=== PATIENT | male | born 1945 | race Caucasian/White ===

== ENCOUNTER 2019-03-24 07:00 | Outpatient (CLI) | payer MEDICARE, OTHER, SELFPAY ==
[2019-03-24 13:10] LABS: Hemoglobin A1C 5.5 % (4.5-6.2)
[2019-03-24 13:39] LABS: Anion Gap 9.5 mmol/L (3-11); BUN 11 mg/dL (7-18); CO2 26.5 mmol/L (21.0-32.0); CREATININE 0.78 mg/dL (0.70-1.30); Calcium 9.2 mg/dL (8.5-10.1); Calculated LDL 64 mg/dL; Chloride 104 mmol/L (98-107); Cholesterol 135 mg/dL (50-200); Glucose 87 mg/dL (70-100); HDL Cholesterol 58 mg/dL (40-60); Potassium 4.2 mmol/L (3.5-5.1); Sodium 140 mmol/L (136-145); Triglyceride 66 mg/dL (30-150)
[2019-03-27 09:33] LABS: PSA, Screening 3.7 ng/ml (0-6.5)
== END 2019-03-24 07:20 ==
PROVIDERS: PCP Emergency Medicine; Visit Provider Emergency Medicine
DX: E11.9 Type 2 diabetes mellitus without complications (principal); I48.91 Unspecified atrial fibrillation; Z12.5 Encounter for screening for malignant neoplasm of prostate
CPT/HCPCS: 36415; 80048; 80061; 84153; 83036

== ENCOUNTER → 2020-01-30 14:00 | Outpatient (BNVA) | payer MEDICARE, OTHER, SELFPAY | PROVIDERS: PCP Emergency Medicine; Referring Provider Emergency Medicine; Visit Provider Urology | DX: N50.89 Other specified disorders of the male genital organs (principal); Z79.01 Long term (current) use of anticoagulants | CPT/HCPCS: 99203 ==

== ENCOUNTER 2020-11-13 15:09 | Outpatient (REF) | payer MEDICARE, OTHER, SELFPAY ==
[2020-11-13 19:29] LABS: BUN 15 mg/dL (7-18); CREATININE 0.9 mg/dL (0.70-1.30); Calculated LDL 57 mg/dL (<100); Chloride 107 mmol/L (98-107); Cholesterol 116 mg/dL (<200); Glucose 86 mg/dL (74-106); HDL Cholesterol 45 mg/dL (40-60); Potassium 4.4 mmol/L (3.5-5.1); Sodium 143 mmol/L (136-145); Triglyceride 71 mg/dL (<150)
[2020-11-13 19:38] LABS: Uric Acid 6.9 mg/dL (3.5-7.2)
[2020-11-14 18:07] LABS: PSA, Diagnostic 4.7 ng/mL (0.0-6.5)
== END 2020-11-13 15:10 | disposition home or self-care (01) ==
LOC: LBN 15:09
PROVIDERS: PCP Emergency Medicine; Visit Provider Emergency Medicine
DX: I10 Essential (primary) hypertension (principal); M10.9 Gout, unspecified; E78.5 Hyperlipidemia, unspecified; N40.0 Benign prostatic hyperplasia without lower urinary tract symptoms; Z95.1 Presence of aortocoronary bypass graft; I25.10 Atherosclerotic heart disease of native coronary artery without angina pectoris
CPT/HCPCS: 80048; 80061; 84153; 84550

== ENCOUNTER 2021-02-20 12:13 | Outpatient (CLI) | payer MEDICARE, OTHER, SELFPAY ==
[2021-02-20 16:59] LABS: Bilirubin Negative (Negative); Blood Negative (Negative); Clarity Clear (Clear); Glucose Negative (Negative); Ketones Negative (Negative); Leukocyte Esterase Negative (Negative); Nitrite Negative (Negative); Specific Gravity 1.025 (1.005-1.025); Urobilinogen 0.2 EU/dL (Up TO 0.2); pH 5.5 (5-8)
[2021-02-20 17:00] LABS: Abs Immature Grans 0.06 10^3/uL (0.0-0.06); Absolute Basophil Count 0.04 10^3/uL (0.0-0.2); Absolute Eosinophil Count 0.18 10^3/uL (0.0-0.7); Absolute Lymphocyte Count 2.63 10^3/uL (1.2-3.4); Absolute Monocyte Count 0.74 10^3/uL (0.1-0.8); Absolute Neutrophil Count 5.94 10^3/uL (1.2-6.7); Basophils % 0.4; Eosinophils % 1.9; HGB 15.3 g/dL (13.5-17.5); Immature Grans % 0.6; Lymphocytes % 27.4; MCH 29.8 pg (27.0-33.0); MCHC 32.6 % (32.0-36.0); MCV 91.4 fL (80-95); MPV 10.9 fL (8.0-11.0); Monocytes % 7.7; Nucleated RBC 0 %; Platelet Count 204 10^3/uL (130-400); RBC 5.14 10^6/uL (4.36-5.78); RDW 12.9 % (11.8-14.1); RDW-SD 43.2 fL; WBC 9.59 10^3/uL (4.4-10.8)
[2021-02-20 17:19] LABS: ALT 26 U/L (16-63); AST 17 U/L (15-37); Alkaline Phosphatase 92 U/L (46-116); Anion Gap 10.1 mmol/L (3-11); BUN 15 mg/dL (7-18); Bilirubin, Total 0.8 mg/dL (0.2-1.0); C-Reactive Protein 0.29 mg/dL (0.0-0.3); CO2 24.9 mmol/L (21.0-32.0); CREATININE 0.8 mg/dL (0.70-1.30); Calcium 9.3 mg/dL (8.5-10.1); Chloride 106 mmol/L (98-107); Glucose 95 mg/dL (74-106); Potassium 4.5 mmol/L (3.5-5.1); Sodium 141 mmol/L (136-145); Total Protein 7.8 g/dL (6.4-8.2)
== END 2021-02-20 12:14 | disposition home or self-care (01) ==
LOC: LBO 02-26 12:14
PROVIDERS: PCP Emergency Medicine; Visit Provider Emergency Medicine
DX: R19.8 Other specified symptoms and signs involving the digestive system and abdomen; R10.9 Unspecified abdominal pain; R30.0 Dysuria
CPT/HCPCS: 36415; 80053; 81003; 85025; 86140

== ENCOUNTER 2021-02-20 14:24 | Outpatient (CLI) | payer MEDICARE, OTHER, SELFPAY ==
--- NOTE | 2021-02-20 14:00 | DI.CT_ITS ---
Exam(s) CT RENAL COLIC WO EXAM: CT RENAL COLIC WO CLINICAL HISTORY: left flank pain, ? kidney stone,r10.9. TECHNIQUE: Imaging Protocol: Axial computed tomography images with coronal and sagittal reformatted images were created and reviewed CONTRAST MATERIAL: Intravenous: none Oral: None COMPARISON: No exams were available for comparison FINDINGS: VISUALIZED LUNG BASES: No nodules nor pleural effusions evident. ABDOMEN: There is no ascites. LIVER: There are no obvious focal hepatic lesions evident of this noninfused study. GALLBLADDER/BILIARY: There are multiple tiny layering gallstones within the gallbladder lumen. No ga llbladder wall edema. One of these calculi appears to be in the cystic duct. This measures approxim ately 2 millimeters. There are none in the nondilated CBD. PANCREAS: No evidence of pancreatic mass nor dilatation of the pancreatic duct. SPLEEN: Spleen is not enlarged. No obvious intrasplenic lesions. ADRENALS: There are no significant adrenal masses. KIDNEYS:There is a small 8 millimeter cyst in the posterior cortex of the left kidney. No other left kidney findings. No significant focal findings in the right kidney. No calculi nor hydronephrosis on either side. No hydroureter. Ureterovesical junctions cannot be assessed because of beam hardeni ng artifact from the bilateral hip prostheses. Also difficult to assess the urinary bladder for calc larry therein. However, the urinary bladder is not distended. There are no solid. ABDOMINAL AORTA: Heavily calcified but not enlarged. LYMPH NODES: There is no retroperitoneal nor paraaortic adenopathy. ABDOMINAL WALL: No evidence of significant anterior abdominal wall nor inguinal hernia. GI: There is no evidence of bowel obstruction, free air, nor abscess. PELVIS: LYMPH NODES: There is no intrapelvic nor inguinal adenopathy. GI: No evidence of appendicitis.Sigmoid diverticuli. No obvious acute diverticulitis. URINARY BLADDER: Difficult to assess because of beam hardening artifact from the bilateral hip prosth eses. REPRODUCTIVE: Upper normal size. Seminal vesicles unremarkable. OSSEOUS: Bilateral hip prostheses Multilevel chronic degenerative disc disease. Also prominent Schmorl's node invagination into the dozier perior endplate of L3. Mild degenerative anterolisthesis of L5 upon S1. Multilevel disc space narro wing. IMPRESSION: 1. Cholelithiasis. There is a myriad of tiny layering gallstones within the gallbladder lumen. Ther e is no gallbladder wall edema. However, 1 of these tiny calculi appears to be in the cystic duct. Cystic duct is not dilated. CBD is not dilated. Pancreatic duct is not dilated. No evidence of lovelace creatitis. 2. No renal calculi. No hydronephrosis. Although the ureters are not dilated, is difficult to visua lize the ureterovesical junctions and urinary bladder because of beam hardening artifact from the elver ateral hip prostheses. 3. Redundant sigmoid with diverticuli. No obvious acute diverticulitis. Other findings as above Discussed by phone with Dr. Horta RADIATION DOSE DELIVERED: 950.3mGy.cm Total DLP DATA REPOSITORY: All CT scans at this facility are submitted to the National Radiology Data Registry (NRDR) Dose Index Registry (DIR) with the [employer] ([employer]). RADIATION OPTIMIZATION: All CT scans at this facility use at least one of these dose optimization te chniques: automated exposure control; mA and/or kV adjustment per patient size (includes targeted exa ms where dose is matched to clinical indication); or iterative reconstruction.
== END 2021-02-20 14:44 ==
LOC: DI 14:27
PROVIDERS: PCP Emergency Medicine; Visit Provider Emergency Medicine
DX: R10.9 Unspecified abdominal pain (principal); K80.20 Calculus of gallbladder without cholecystitis without obstruction; K57.30 Diverticulosis of large intestine without perforation or abscess without bleeding
CPT/HCPCS: 36415; 80053; 74176; 81003; 85025; 86140

== ENCOUNTER 2025-03-23 13:33 | Outpatient (CLI) | payer MEDICARE, SELFPAY ==
[2025-03-23 16:10] LABS: Abs Immature Grans 0.04 10^3/uL (0.0-0.06); HCT 44.3 % (40.0-50.0); HGB 14.4 g/dL (13.5-17.5); Immature Grans % 0.4 %; MCH 29.4 pg (27.0-33.0); MCHC 32.5 % (32.0-36.0); MCV 91 fL (80-95); MPV 11.1 fL (8.0-11.0); Platelet Count 222 10^3/uL (130-400); RBC 4.89 10^6/uL (4.36-5.78); RDW 13.3 % (11.8-14.1); RDW-SD 43.9 fL; WBC 9.38 10^3/uL (4.4-10.8)
[2025-03-23 16:31] LABS: ALT 34 U/L (16-63); AST 21 U/L (15-37); Albumin 3.7 g/dL (3.4-5.0); Alkaline Phosphatase 99 U/L (46-116); Anion Gap 8.8 mmol/L (3-11); BUN 13 mg/dL (7-18); Bilirubin, Total 0.7 mg/dL (0.2-1.0); CO2 26.2 mmol/L (21.0-32.0); Calcium 9.0 mg/dL (8.5-10.1); Chloride 107 mmol/L (98-107); Estimated GFR 90.58 (mL/min/1.73m2); Glucose 123 mg/dL (74-106); Magnesium 2.4 mg/dL (1.8-2.4); Potassium 3.9 mmol/L (3.5-5.1); Sodium 142 mmol/L (136-145); TSH (W/Ref FT4) 1.81 uIU/mL (0.36-3.74); Total Protein 7.3 g/dL (6.4-8.2)
[2025-03-23 16:36] LABS: Hemoglobin A1C 5.3 % (<5.7)
[2025-03-26 09:42] LABS: PSA, Screening 7.8 ng/mL (<=6.5)
== END 2025-03-23 13:34 | disposition home or self-care (01) ==
PROVIDERS: PCP Nurse Practitioner Family; Visit Provider Nurse Practitioner Family
DX: R73.01 Impaired fasting glucose (principal); I48.91 Unspecified atrial fibrillation; Z12.5 Encounter for screening for malignant neoplasm of prostate; R97.20 Elevated prostate specific antigen [PSA]
CPT/HCPCS: 36415; 80053; 84153; 83036; 83735; 84443; 85025